=== PATIENT | male | born 1990 | race Caucasian/White ===

== ENCOUNTER 2020-10-12 00:03 | Emergency (ER) | payer OTHER ==
[~2020-10-12] VITALS: Ht 175.3 cm; Wt 77.0 kg
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
--- NOTE | 2020-10-12 01:16 | NUR ---
pt ambulatory to restroom with steady gait
--- NOTE | 2020-10-12 01:36 | NUR ---
denver Molina at bedside for eval
[2020-10-12] MEDS ORDERED: KETOROLAC 30 MG/1 ML ONE (01:42)
[2020-10-12] MEDS ORDERED: HYDROcodone/APAP 5/325 TABLET ONE (01:43)
--- NOTE | 2020-10-12 01:49 | NUR ---
pt medicated per order, tolerated well. pt taken to radiology at this time.
[2020-10-12] MEDS ORDERED: HYDROcodone/APAP 5/325 TABLET PO ONE (02:00)
[2020-10-12] MEDS ORDERED: KETOROLAC 30 MG/1 ML IM ONE (02:00)
--- NOTE | 2020-10-12 02:22 | NUR ---
xr at bedside
--- NOTE | 2020-10-12 03:11 | NUR ---
PT INSTRUCTED NO WATER UNTIL AFTER XRAYS HAVE BEEN READ.
[2020-10-12] MEDS ORDERED: LIDOCAINE-MPF 1%, 5ML ONE (04:26)
[2020-10-12] MEDS ORDERED: LIDOCAINE-MPF 1%, 5ML INFIL ONE (04:30)
[2020-10-12 05:53] VITALS: BP 111/64
--- NOTE | 2020-10-12 05:54 | NUR ---
Patient/Caregiver given discharge instructions and they have confirmed that they understand the instructions. Patient ambulatory with steady gait. NAD, all questions answered appropriately, denies additional needs at this time. No personal belongings left in room after discharge.
== END 2020-10-12 05:55 | disposition home or self-care (01) ==
LOC: ED 05:43
DX: S02.2XXA Fracture of nasal bones, initial encounter for closed fracture (principal); S01.112A Laceration without foreign body of left eyelid and periocular area, initial encounter; S80.01XA Contusion of right knee, initial encounter; S90.31XA Contusion of right foot, initial encounter; S60.221A Contusion of right hand, initial encounter; X58.XXXA Exposure to other specified factors, initial encounter; Y93.89 Activity, other specified; Y92.89 Other specified places as the place of occurrence of the external cause; Y99.8 Other external cause status
CPT/HCPCS: 12013; 70450; 70486; 71045; 73130; 73564; 73630; 96372; 99285; J1885